=== PATIENT | male | born 1960 ===

== ENCOUNTER 2020-02-24 11:50 | Inpatient (IN) | payer SELFPAY ==
[2020-02-24] MEDS ORDERED: NS 0.9% w/ 20 MEQ KCL 1,000 ML IV SCH (12:45)
[2020-02-24] MEDS ORDERED: Insulin Regular 100 units/100 ml in NS IVPB SCH (12:45)
[2020-02-24] MEDS ORDERED: Ondansetron PF 4 MG/2 ML Vial ONE (13:04)
[2020-02-24] MEDS ORDERED: Metoclopramide HCl 10 MG/2 ML VIAL ONE (13:39)
[2020-02-24] MEDS ORDERED: Sodium Chloride 0.9% 1,000 ML IV PRN ×4 (13:56)
[2020-02-24] MEDS ORDERED: Dextrose 5 %-0.45 % NaCl 1,000 ML IV PRN (13:56)
[2020-02-24] MEDS ORDERED: CCU Electrolyte Replacement 1 EACH IVPB ONE (13:56)
[2020-02-24] MEDS ORDERED: NS 0.9% w/ 20 MEQ KCL 1,000 ML IV PRN ×2 (13:56)
[2020-02-24] MEDS ORDERED: HUMULIN R 100 UNITS in Sodium Chloride 0.9% 100 ML IVPB SCH (14:00)
[2020-02-24 14:18] LABS: Base Excess-Venous -17.6 mmol/L (-2.0 to 3.0); Bicarbonate (HCO3v) 9.3 mmol/L (22.0-28.0); CO2 Tension (PvCO2) 25.8 mmHg (40.0-50.0); Chloride 113 mmol/L (98-107); Hemoglobin - Calc 16.1 g/dL (14.0-18.0); Potassium 4.4 mmol/L (3.5-5.1); Sodium 137 mmol/L (138-145); T. Carbon Dioxide 10.1 mmol/L (22.0-28.0); vO2 Saturation-calc 50.9 % (60.0-85.0)
[2020-02-24 14:24] LABS: Hemoglobin A1c 11.6 % (4.0-6.0)
[2020-02-24] MEDS ORDERED: Potassium Chloride 40 MEQ in Premix Bag 1 BAG IVPB PRN (14:25)
[2020-02-24] MEDS ORDERED: Potassium Phosphate 12 MMOL in Sodium Chloride 0.9% 250 ML 250 ML IV PRN (14:25)
[2020-02-24] MEDS ORDERED: Magnesium 2 GM/50 ML 2 GM in Premix Bag 1 BAG IVPB PRN (14:25)
[2020-02-24] MEDS ORDERED: Potassium Chloride 20 MEQ TAB PO PRN (14:25)
[2020-02-24] MEDS ORDERED: Magnesium Oxide 400 MG TAB PO PRN ×2 (14:25)
[2020-02-24] MEDS ORDERED: Potassium Phosphate 9 MMOL in Sodium Chloride 0.9% 100 ML IVPB PRN (14:25)
[2020-02-24] MEDS ORDERED: CCU ELECTROLYTE REPLACEMENT PROTOCOL FS PRN (14:25)
[2020-02-24] MEDS ORDERED: Potassium Chloride 40 MEQ in Sodium Chloride 0.9% 250 ML 250 ML IVPB PRN (14:25)
[2020-02-24] MEDS ORDERED: PHOS-NAK 1 PKT PACK PO PRN ×2 (14:25)
[2020-02-24] MEDS ORDERED: Potassium Phosphate 15 MMOL in Sodium Chloride 0.9% 250 ML 250 ML IV PRN (14:25)
[2020-02-24 14:35] LABS: BUN (Urea Nitrogen) 36 mg/dL (8.4-25.7); Calc. Creatinine Clearance 0 mL/min (70-130); Calcium 9.1 mg/dL (7.8-10.44); Chloride 109 mmol/L (98-107); Estimated GFR-MDRD 39; Glucose 396 mg/dL (80-115); Magnesium 2.4 mg/dL (1.6-2.6); Sodium 140 mmol/L (136-145)
[2020-02-24 14:42] LABS: Carbon Dioxide Less than 8 mmol/L (23-31)
[2020-02-24 14:43] LABS: Troponin I Less than 0.010 ng/mL (< 0.028)
[2020-02-24 16:04] VITALS: BMI 23.3
[2020-02-24] MEDS: Metoclopramide HCl 10 MG/2 ML VIAL IVP PRN (17:17)
[2020-02-24] MEDS: D5 1/2 NS w/20 mEq KCL 1,000 ML IV PRN ×2 (17:17→20:40)
[2020-02-24 17:50] LABS: Base Excess-Venous -16.7 mmol/L (-2.0 to 3.0); CO2 Tension (PvCO2) 27.1 mmHg (40.0-50.0); Calcium, Ionized 1.13 mmol/L (See Comments:); Chloride 109 mmol/L (98-107); Hemoglobin - Calc 17.3 g/dL (14.0-18.0); Potassium 4.5 mmol/L (3.5-5.1); Sodium 136 mmol/L (138-145); T. Carbon Dioxide 10.8 mmol/L (22.0-28.0); vO2 Saturation-calc 47.3 % (60.0-85.0)
[2020-02-24 18:31] LABS: Anion Gap 21 mmol/L (10-20); BUN (Urea Nitrogen) 33 mg/dL (8.4-25.7); Calc. Creatinine Clearance 48 mL/min (70-130); Calcium 8.8 mg/dL (7.8-10.44); Carbon Dioxide 10 mmol/L (23-31); Chloride 114 mmol/L (98-107); Estimated GFR-MDRD 42; Glucose 317 mg/dL (80-115); Sodium 141 mmol/L (136-145)
[2020-02-24 18:37] LABS: Troponin I Less than 0.010 ng/mL (< 0.028)
[2020-02-24] MEDS: Enoxaparin Sodium 40 MG/0.4 ML SYRINGE SC SCH (20:42)
--- NOTE | 2020-02-24 21:50 | HP ---
CHIEF COMPLAINT: Abdominal pain, nausea, vomiting. HISTORY OF PRESENT ILLNESS: The patient is a 60-year-old male with no past medical history, who presents to the hospital with complaints of abdominal pain, nausea, and vomiting going on since Friday. He stated that he ate at a [place] [employer] and around 2:00 a.m. the next day, he started having significant abdominal pain, nausea, vomiting, and diarrhea. He stated that about Friday or Friday, his diarrhea subsided. However, his nausea and vomiting tended to be on and off. Yesterday and today, prior to coming into the hospital, he continued to have significant amount of emesis and has not been able to keep anything down, so he came into the hospital for further evaluation. He denies any current fevers, chills, any sick contacts, any travels. [place] and [place] no recent exposures. PAST MEDICAL HISTORY: He has had a history of diabetes. He was on p.o. medications, however, is currently not taking anything since many years. PAST SURGICAL HISTORY: He has a cholecystectomy. FAMILY HISTORY: History of diabetes in mother. REVIEW OF SYSTEMS: All negative except for the ones mentioned above in the HPI. SOCIAL HISTORY: He denies any alcohol use, drug use, or smoking history. He is a full code. MEDICATIONS: He takes none. ALLERGIES: HE HAS NO KNOWN DRUG ALLERGIES. PHYSICAL EXAMINATION: VITAL SIGNS: Temperature 98.4, heart rate of 120, blood pressure 154/89, respiratory rate 13, saturation 100% on room air. GENERAL: He is awake, alert, and oriented x3. Does not appear in distress. CV: S1, S2 present. Tachycardia. LUNGS: Clear to auscultation. No rhonchi or wheezes noted. ABDOMEN: Soft and nontender. Bowel sounds are present x2. EXTREMITIES: No edema. Pedal pulses are present x2. NEUROVASCULAR: No focal deficits noted. SKIN: No cuts, lesions, or bruises noted. LABORATORY RESULTS: Sodium of 140, potassium of 4.0, bicarb of 8, BUN of 36, creatinine of 1.79. Hematology: CBC; WBCs of 14.6, hemoglobin of 16.1, hematocrit of 49.2. Sodium 141, potassium of 4.5, BUN of 39, creatinine 1.0. His pH was 7.1. He did have an EKG which did not show any acute abnormalities. Just indicated possible some pulmonary disease. Sinus tachycardia was noted. He did have a chest x-ray. I was unable to look back at the films, this patient came in from an outside ER, did not show any acute abnormalities. ASSESSMENT AND PLAN: The patient is a very pleasant 60-year-old male, who presents to the hospital with complaints of abdominal pain, nausea, and vomiting. 1. Diabetic ketoacidosis. Patient possibly could have had a viral gastroenteritis after eating food at the restaurant, which could have worsened his underlying diabetes. The patient denied any symptoms of polyuria, polydipsia prior to this current admission. The patient states that normally he drinks a lot of water, but this has been going on for years. We will start patient on diabetic ketoacidosis protocol. We will replace electrolytes. Has pH of 7.1, no indication for bicarb for now. I will continue the drip until his bicarb improves and his gap closes. I will check a hemoglobin A1c. 2. Metabolic acidosis. Anion gap metabolic acidosis most likely secondary to his diabetic ketoacidosis. We will continue to monitor. 3. Acute kidney injury. Unknown patient's baseline creatinine. However, patient has no other medical history. I will continue hydration and continue to monitor, this possibly could be prerenal related from dehydration. 4. Dehydration. This is possibly from his nausea, vomiting, abdominal pain. 5. Deep venous thrombosis prophylaxis. We will put the patient on subcu Lovenox. Job ID: [id number]
[2020-02-24 22:52] LABS: Anion Gap 15 mmol/L (10-20); BUN (Urea Nitrogen) 26 mg/dL (8.4-25.7); Calc. Creatinine Clearance 62 mL/min (70-130); Calcium 8.3 mg/dL (7.8-10.44); Carbon Dioxide 12 mmol/L (23-31); Chloride 120 mmol/L (98-107); Estimated GFR-MDRD 56; Glucose 187 mg/dL (80-115); Sodium 143 mmol/L (136-145)
[2020-02-24 22:57] LABS: Troponin I Less than 0.010 ng/mL (< 0.028)
[2020-02-25] MEDS: Metoclopramide HCl 10 MG/2 ML VIAL IVP PRN (00:06)
[2020-02-25] MEDS ORDERED: Promethazine HCl 25 MG in Sodium Chloride 0.9% 50 ML IVPB PRN (00:28)
[2020-02-25] MEDS ORDERED: Insulin Glargine 30 UNITS in Pre-Filled Syringe 1 EACH SC SCH (00:45)
[2020-02-25] MEDS: D5 1/2 NS w/20 mEq KCL 1,000 ML IV PRN (00:51)
[2020-02-25] MEDS: Sodium Chloride 0.45% 1,000 ML IV SCH ×2 (03:29→12:18)
[2020-02-25 04:56] LABS: Anion Gap 10 mmol/L (10-20); BUN (Urea Nitrogen) 22 mg/dL (8.4-25.7); Calc. Creatinine Clearance 63 mL/min (70-130); Calcium 8.3 mg/dL (7.8-10.44); Carbon Dioxide 16 mmol/L (23-31); Chloride 121 mmol/L (98-107); Estimated GFR-MDRD 57; Glucose 223 mg/dL (80-115); Sodium 143 mmol/L (136-145)
[2020-02-25] MEDS ORDERED: Dextrose 50% Abboject 50 ML SYRINGE IVP PRN (05:57)
[2020-02-25] MEDS ORDERED: HumaLOG 300 UNITS/3 ML VIAL SC PRN (05:57)
[2020-02-25] MEDS ORDERED: Dextrose 5% in Water 1,000 ML IV PRN (05:57)
[2020-02-25] MEDS ORDERED: Prevnar 13-Val Conj/PF 0.5 ML SYRINGE IM ONE (09:00)
[2020-02-25] MEDS ORDERED: Ondansetron PF 4 MG/2 ML Vial SLOW IVP PRN (11:43)
[2020-02-25] MEDS: HumaLOG 300 UNITS/3 ML VIAL SC PRN ×2 (12:11→17:24)
--- NOTE | 2020-02-25 14:33 | PDOC.HOSPP ---
- Subjective Encounter Date: 02/25/20 Encounter Time: 11:15 Subjective: pt up in bed feels well. Had diarrhea x1. - Objective Vital Signs & Weight: Vital Signs (12 hours) Temp Pulse Ox 02/25/20 12:00 100 02/25/20 11:35 97.7 F 02/25/20 08:00 100 02/25/20 07:25 97.3 F L 02/25/20 03:40 97.4 F L Weight Admit Weight 163 lb 2.273 oz Weight 163 lb 2.273 oz Most Recent Monitor Data Heart Rate from ECG 100 NIBP 153/85 NIBP BP-Mean 107 Respiration from ECG 17 SpO2 98 I&O: 02/24/20 02/25/20 02/26/20 06:59 06:59 06:59 Intake Total 5189 Output Total 1680 Balance 3509 Result Diagrams: 02/25/20 03:52 Additional Labs: Accuchecks 02/25/20 02/25/20 02/25/20 11:20 06:09 05:18 POC Glucose 299 H 234 H 221 H 02/25/20 02/25/20 02/25/20 04:19 03:30 02:30 POC Glucose 189 H 205 H 219 H 02/25/20 02/25/20 02/24/20 00:58 00:07 23:11 POC Glucose 194 H 194 H 185 H 02/24/20 02/24/20 02/24/20 22:10 21:17 20:27 POC Glucose 152 H 134 H 183 H 02/24/20 02/24/20 02/24/20 19:05 18:06 17:20 POC Glucose 312 H 307 H 292 H 02/24/20 02/24/20 02/24/20 16:41 15:36 14:37 POC Glucose 276 H 324 H 373 H Hospitalist ROS - Review of Systems Respiratory: denies: cough, dry, shortness of breath, hemoptysis, SOB with excertion, pleuritic pain, sputum, wheezing, other Cardiovascular: denies: chest pain, palpitations, orthopnea, paroxysmal noc. dyspnea, edema, light headedness, other Gastrointestinal: denies: nausea, vomiting, abdominal pain, diarrhea, constipation, melena, hematochezia, other Genitourinary: denies: dysuria, frequency, incontinence, hematuria, retention, other - Medication Medications: Active Medications Generic Name Dose Route Start Last Admin Trade Name Freq PRN Reason Stop Dose Admin Enoxaparin Sodium 40 mg 02/24/20 21:00 02/24/20 20:42 Lovenox SC 40 mg 2100 NIHARIKA Administration Potassium Chloride/Dextrose/Sod Cl 1,000 mls @ 250 mls/hr 02/24/20 13:56 00:51 D5 1/2 Ns W/20 Meq Kcl IV 1,000 mls .Q4H PRN Administration Step 4 of DKA Protocol Protocol Insulin Human Regular 100 101 mls @ 0 mls/hr 02/24/20 14:00 02/25/20 00:10 units/ Sodium Chloride IVPB 101 mls INF NIHARIKA Administration Protocol Titrate Potassium Chloride/Sodium Chloride 1,000 mls @ 250 mls/hr 02/24/20 13:56 18:40 Ns 0.9% W/ 20 Meq Kcl IV 1,000 mls .Q4H PRN Administration SEE STEP 3 OF DKA PROTOCOL Protocol Sodium Chloride 1,000 mls @ 100 mls/hr 02/25/20 02:30 02/25/20 12:18 1/2 Normal Saline IV 1,000 mls .Q10H NIHARIKA Administration Insulin Human Lispro 0 units 02/25/20 05:57 02/25/20 12:11 Humalog SC 6 unit .MODERATE SLIDING SC PRN Administration MODERATE SLIDING SCALE Protocol Sodium Chloride 10 ml 02/24/20 21:00 02/25/20 12:10 Flush - Normal Saline IVF 10 ml Q12HR NIHARIKA Administration - Exam Heart: negative: RRR, no murmur, no gallops, no rubs, normal peripheral pulses, irregular, diminshed peripheral pulses, murmur present, II/IV, III/IV Respiratory: negative: CTAB, no wheezes, no rales, no ronchi, normal chest expansion, no tachypnea, normal percussion, rales, rhonchi, tachypneic, wheezes Gastrointestinal: negative: soft, non-tender, non-distended, normal bowel sounds , no palpable masses, no hepatomegaly, no splenomegaly, no bruit, no guarding, no rigidity, tender to palpation, distended, diminished bowl sounds, voluntary guarding Extremities: negative: no cyanosis, no clubbing, no edema, 1+ LE edema, 2+ LE edema, clubbing Hosp A/P (1) DKA (diabetic ketoacidoses) Code(s): E11.10 - TYPE 2 DIABETES MELLITUS WITH KETOACIDOSIS WITHOUT COMA Status: Acute (2) Metabolic acidosis Code(s): E87.2 - ACIDOSIS Status: Acute - Plan pt off insulin drip, will start pt on insulin sc. will continue fluids and advance diet as tolerated. possible discharge in am if he continues to improve. his gap has closed. dvt ppx on lovenox.
[2020-02-25] MEDS: Enoxaparin Sodium 40 MG/0.4 ML SYRINGE SC SCH (20:33)
[2020-02-25] MEDS ORDERED: Insulin Glargine 20 UNITS in Pre-Filled Syringe SC SCH (21:00)
[2020-02-26] MEDS: Sodium Chloride 0.45% 1,000 ML IV SCH ×2 (01:46→08:30)
[2020-02-26 04:23] LABS: #Lymphocytes 0.8 thou/uL (1.20-3.40); #Monocytes 0.7 thou/uL (0.11-0.59); #Neutrophils 5.9 thou/uL (1.40-6.50); %Basophils 0.3 % (0.0-1.0); %Eosinophils 0.3 % (0.0-10.0); %Lymphocytes 10.6 % (21.0-51.0); %Monocytes 8.8 % (0.0-10.0); Hemoglobin 13.1 g/dL (14.0-18.0); Mean Corpuscular HGB CONC 34.3 g/dL (32.0-36.0); Mean Corpuscular Hemoglobin 30.6 pg (27.0-31.0); Mean Corpuscular Volume 89.4 fL (78.0-98.0); Mean Platelet Volume 7.3 fL (7.4-10.4); Platelet Count 178 thou/uL (130-400); RBC Distribution Width 12.2 % (11.5-14.5); Red Blood Cell (RBC) Count 4.28 mill/uL (4.70-6.10); White Blood Cell (WBC) Count 7.4 thou/uL (4.8-10.8)
[2020-02-26 04:59] LABS: ALT (SGPT) Less than 7 U/L (8-55); AST (SGOT) 8 U/L (5-34); Albumin 2.7 g/dL (3.4-4.8); Alkaline Phosphatase 89 U/L (40-110); Anion Gap 10 mmol/L (10-20); BUN (Urea Nitrogen) 16 mg/dL (8.4-25.7); Bilirubin, Total 0.3 mg/dL (0.2-1.2); Calc. Creatinine Clearance 92 mL/min (70-130); Calcium 8.3 mg/dL (7.8-10.44); Carbon Dioxide 19 mmol/L (23-31); Chloride 115 mmol/L (98-107); Estimated GFR-MDRD 88; Globulin 2.5 g/dL (2.4-3.5); Glucose 233 mg/dL (80-115); Magnesium 1.9 mg/dL (1.6-2.6); Potassium 3.3 mmol/L (3.5-5.1); Protein, Total 5.2 g/dL (5.8-8.1); Sodium 141 mmol/L (136-145)
[2020-02-26] MEDS: HumaLOG 300 UNITS/3 ML VIAL SC PRN ×3 (06:24→16:24)
--- NOTE | 2020-02-26 13:37 | PDOC.HOSPP ---
- Subjective Encounter Date: 02/26/20 Encounter Time: 10:50 Subjective: feels better is tolerating oral diet, no sob - Objective Vital Signs & Weight: Vital Signs (12 hours) Temp Pulse Resp BP Pulse Ox 02/26/20 12:55 98.6 F 90 16 113/71 97 02/26/20 11:20 96.9 F L 02/26/20 07:20 96.9 F L 02/26/20 07:17 98 02/26/20 04:33 98.5 F Weight Admit Weight 163 lb 2.273 oz Weight 163 lb 2.273 oz Most Recent Monitor Data Heart Rate from ECG 80 NIBP 164/87 NIBP BP-Mean 112 Respiration from ECG 19 SpO2 97 I&O: 02/25/20 02/26/20 02/27/20 06:59 06:59 06:59 Intake Total 5189 5557 Output Total 1680 1250 Balance 3509 4307 Result Diagrams: 02/26/20 04:08 02/26/20 04:08 Additional Labs: Accuchecks 02/26/20 02/26/20 02/25/20 10:48 05:55 20:29 POC Glucose 208 H 209 H 306 H 02/25/20 17:04 POC Glucose 274 H Hospitalist ROS - Medication Medications: Active Medications Generic Name Dose Route Start Last Admin Trade Name Freq PRN Reason Stop Dose Admin Enoxaparin Sodium 40 mg 02/24/20 21:00 02/25/20 20:33 Lovenox SC 40 mg 2100 NIHARIKA Administration Insulin Human Lispro 0 units 02/25/20 05:57 02/26/20 11:31 Humalog SC 4 unit .MODERATE SLIDING SC PRN Administration MODERATE SLIDING SCALE Protocol Insulin Human Lispro 0 units 02/25/20 05:57 02/25/20 20:33 Humalog SC 4 unit .BEDTIME SLIDING SC PRN Administration BEDTIME SLIDING SCALE Protocol - Exam General Appearance: awake alert Eye: PERRL, anicteric sclera ENT: no oropharyngeal lesions, dry oral mucosa Neck: supple, no JVD Heart: RRR, no murmur Respiratory: no wheezes, no rales Gastrointestinal: soft, non-tender, non-distended, normal bowel sounds Extremities: no cyanosis, no edema Neurological: cranial nerve grossly intact, no focal deficits Psychiatric: normal affect, A&O x 3 Hosp A/P (1) DM type 2 (diabetes mellitus, type 2) Status: Chronic Qualifiers: Diabetes mellitus termite treater insulin use: without termite treater use (2) DKA (diabetic ketoacidoses) Code(s): E11.10 - TYPE 2 DIABETES MELLITUS WITH KETOACIDOSIS WITHOUT COMA Status: Resolved Qualifiers: Diabetes mellitus type: type 2 (3) Non compliance with medical treatment Code(s): Z91.19 - PATIENT'S NONCOMPLIANCE W OTH MEDICAL TREATMENT AND REGIMEN Status: Chronic - Plan start pt on metformin, low dose lantus for tonight and dc he lost around 80lbs after diagnosis of dm 10 yrs back and stopped all meds from 4 yrs no prior colonoscopy, is still losing weight unintentional now, will need outpt w/u hemostable continue iv fluids, is still dry clinically dc plan in am
[2020-02-26] MEDS: Sodium Chloride 0.9% 1,000 ML IV SCH ×2 (13:58→23:10)
[2020-02-26] MEDS: metFORMIN 850 MG TAB PO SCH (16:24)
[2020-02-26] MEDS: Enoxaparin Sodium 40 MG/0.4 ML SYRINGE SC SCH (20:18)
[2020-02-26] MEDS ORDERED: Insulin Glargine 10 UNITS in Pre-Filled Syringe 1 EACH SC SCH (21:00)
[2020-02-27] MEDS ORDERED: Ondansetron PF 4 MG/2 ML Vial IVP SCH (01:30)
[2020-02-27 05:57] LABS: Anion Gap 8 mmol/L (10-20); BUN (Urea Nitrogen) 9 mg/dL (8.4-25.7); Calc. Creatinine Clearance 127 mL/min (70-130); Calcium 7.9 mg/dL (7.8-10.44); Carbon Dioxide 23 mmol/L (23-31); Chloride 112 mmol/L (98-107); Estimated GFR-MDRD Greater than 90; Glucose 125 mg/dL (80-115); Sodium 140 mmol/L (136-145)
[2020-02-27] MEDS: Potassium Chloride 20 MEQ TAB PO SCH ×2 (08:01→12:12)
[2020-02-27] MEDS: metFORMIN 850 MG TAB PO SCH (08:02)
[2020-02-27] MEDS: Sodium Chloride 0.9% 1,000 ML IV SCH (08:06)
--- NOTE | 2020-02-27 10:43 | PDOC.HOSPP ---
- Subjective Encounter Date: 02/27/20 Encounter Time: 08:35 Subjective: had 2 episodes of loose stool yesterday, had these issues prior to arrival x 1 week. no nausea or abd pain now, is amb in room is eating oral diet - Objective Vital Signs & Weight: Vital Signs (12 hours) Temp Pulse Resp BP Pulse Ox 02/27/20 07:13 98.6 F 91 18 156/79 H 97 Weight Admit Weight 163 lb 2.273 oz Weight 163 lb 2.273 oz Most Recent Monitor Data Heart Rate from ECG 80 NIBP 164/87 NIBP BP-Mean 112 Respiration from ECG 19 SpO2 97 I&O: 02/26/20 02/27/20 02/28/20 06:59 06:59 06:59 Intake Total 5557 2940 Output Total 1250 Balance 4307 2940 Result Diagrams: 02/26/20 04:08 02/27/20 05:20 Additional Labs: Accuchecks 02/27/20 02/27/20 02/26/20 06:05 01:48 19:19 POC Glucose 116 H 148 H 192 H 02/26/20 02/26/20 16:28 10:48 POC Glucose 164 H 208 H Hospitalist ROS - Medication Medications: Active Medications Generic Name Dose Route Start Last Admin Trade Name Freq PRN Reason Stop Dose Admin Enoxaparin Sodium 40 mg 02/24/20 21:00 02/26/20 20:18 Lovenox SC 40 mg 2100 NIHARIKA Administration Sodium Chloride 1,000 mls @ 100 mls/hr 02/26/20 12:01 02/27/20 08:06 Normal Saline 0.9% IV 1,000 mls .Q10H NIHARIKA Administration Insulin Human Lispro 0 units 02/25/20 05:57 02/26/20 16:24 Humalog SC 2 unit .MODERATE SLIDING SC PRN Administration MODERATE SLIDING SCALE Protocol Insulin Human Lispro 0 units 02/25/20 05:57 02/25/20 20:33 Humalog SC 4 unit .BEDTIME SLIDING SC PRN Administration BEDTIME SLIDING SCALE Protocol Potassium Chloride 40 meq 02/27/20 07:15 02/27/20 08:01 K-Dur PO 02/27/20 13:16 40 meq Q6H NIHARIKA Administration - Exam General Appearance: awake alert Eye: PERRL, anicteric sclera ENT: no oropharyngeal lesions, moist mucosa Neck: supple, no JVD Heart: RRR, no murmur Respiratory: no wheezes, no rales Gastrointestinal: soft, non-tender, non-distended, normal bowel sounds Extremities: no cyanosis, no edema Neurological: cranial nerve grossly intact, no focal deficits Psychiatric: normal affect, A&O x 3 Hosp A/P (1) DM type 2 (diabetes mellitus, type 2) Status: Chronic Qualifiers: Diabetes mellitus terminal block assembler insulin use: without skilled nursing use (2) DKA (diabetic ketoacidoses) Code(s): E11.10 - TYPE 2 DIABETES MELLITUS WITH KETOACIDOSIS WITHOUT COMA Status: Resolved Qualifiers: Diabetes mellitus type: type 2 (3) Non compliance with medical treatment Code(s): Z91.19 - PATIENT'S NONCOMPLIANCE W OTH MEDICAL TREATMENT AND REGIMEN Status: Chronic - Plan reduce dose of metformin, dc lantus he lost around 80lbs after diagnosis of dm 10 yrs back and stopped all meds from 4 yrs no prior colonoscopy, is still losing weight unintentional now, will need outpt w/u hemostable continue iv fluids for 1 liter and dc dc plan in am
[2020-02-27] MEDS: HumaLOG 300 UNITS/3 ML VIAL SC PRN (12:17)
[2020-02-27] MEDS: metFORMIN 500 MG TAB PO SCH (16:46)
[2020-02-27] MEDS: Enoxaparin Sodium 40 MG/0.4 ML SYRINGE SC SCH (20:27)
[2020-02-28 06:05] LABS: Anion Gap 11 mmol/L (10-20); BUN (Urea Nitrogen) 8 mg/dL (8.4-25.7); Calc. Creatinine Clearance 105 mL/min (70-130); Calcium 8.2 mg/dL (7.8-10.44); Carbon Dioxide 27 mmol/L (23-31); Chloride 104 mmol/L (98-107); Estimated GFR-MDRD Greater than 90; Glucose 223 mg/dL (80-115); Potassium 3.6 mmol/L (3.5-5.1); Sodium 138 mmol/L (136-145)
[2020-02-28] MEDS: HumaLOG 300 UNITS/3 ML VIAL SC PRN (07:01)
[2020-02-28] MEDS: metFORMIN 500 MG TAB PO SCH (07:58)
[2020-02-28 08:14] VITALS: BP 134/77; TEMP 98.2
--- NOTE | 2020-02-28 14:37 | DIS ---
DATE OF ADMISSION: 02/24/2020 DATE OF DISCHARGE: 02/28/2020 DISCHARGE DISPOSITION: Home. PRIMARY DISCHARGE DIAGNOSES: Diabetic ketoacidosis due to noncompliance with medication, resolved; diabetes mellitus type 2. PROCEDURES DONE DURING HOSPITALIZATION: H and H of 13 and 38, platelet count 178. Discharge BUN and creatinine are 8 and 0.7. The patient had serum sugars of 403 on the day of admission with BUN of 36, creatinine 1.7 on admission. Serum bicarb was less than 8. Venous blood gas done showed a pH of 7.17, pCO2 of 27, PO2 of 31. DISCHARGE MEDICATIONS: Metformin 500 mg p.o. twice daily. ALLERGIES: NO KNOWN DRUG ALLERGIES. DISCHARGE PLAN: The patient is to follow up with Dr. Bear Sampson in 1 week. BRIEF COURSE DURING HOSPITALIZATION: The patient initially got admitted on the with complaints of abdominal pain, nausea, vomiting, and diarrhea. He also was found to be in DKA. The patient has known history of diabetes and was off medications for nearly 4 years. He had lost weight and discontinued his medications 4 years back. The patient also was severely dehydrated with metabolic acidosis and acute kidney injury on top of DKA. He was aggressively hydrated and was on IV insulin with DKA protocol in [facility]. He was later downgraded to medical floor. His diarrhea has completely resolved. His fingerstick glucose is stable at present. He is advised to check fingerstick glucose twice daily and record for a period of 10 days to follow up with his primary care physician for any changes in his medications. The patient is also unintentionally losing weight from last 1 year or so and needs to have screening measures including colonoscopy which has not had so far. He states he will follow up with Dr. Sampson for the same for outpatient referrals. Please note, I have seen and examined the patient on the day of discharge. Job ID: [id number]
== END 2020-02-28 11:21 | disposition home or self-care (01) | DRG 638 ==
LOC: ERS 11:50 → IMCU/EMU 14:17 → T4-B 02-26 13:32
PROVIDERS: ADMIT Internal Medicine; ATTEND Internal Medicine
DX: E11.10 Type 2 diabetes mellitus with ketoacidosis without coma (principal); N17.9 Acute kidney failure, unspecified; E86.0 Dehydration; Z91.14 Patient's other noncompliance with medication regimen; Z90.49 Acquired absence of other specified parts of digestive tract
CPT/HCPCS: 36415; 36416; 80048; 80053; 82330; 82803; 83036; 83735; 84484; 85014; 85025; 90471; 90670; 93005; 94760; 96365; 96366; 96368; 96375; 99292; G0009; J1650; J1815; J2405; J2550; J2765; J3480; J3490